=== PATIENT | male | born 1975 | race American Indian/Alaskan Native ===

== ENCOUNTER 2017-12-09 18:45 | Emergency (ER) | payer SELFPAY ==
[2017-12-09 18:55] VITALS: BP 221/152
[2017-12-09 19:40] LABS: Basophils # (Auto) 0.1 K/mm3 (0.0-0.1); Basophils % (Auto) 0.8 % (0.0-1.8); Eosinophils # (Auto) 0.1 K/mm3 (0.0-0.4); Eosinophils % (Auto) 1.1 % (0.0-4.3); Lymphocytes # (Auto) 2.1 K/mm3 (1.2-5.4); Mean Corpuscular HGB Conc 33 % (32-34); Mean Corpuscular Volume 76 fl (84-94); Monocytes # (Auto) 0.7 K/mm3 (0.0-0.8); Monocytes % (Auto) 6.6 % (0.0-7.3); Platelet Count 218 K/mm3 (140-440); Red Blood Count 6.42 M/mm3 (3.65-5.03); Red Cell Distribution Width 15.3 % (13.2-15.2)
[2017-12-09 19:47] LABS: BUN/Creatinine Ratio 16; Blood Urea Nitrogen 19 mg/dL (9-20); Calcium 8.9 mg/dL (8.4-10.2); Hemolysis Index 134; Mean Corpuscular Hemoglobin 25 pg (28-32)
--- NOTE | 2017-12-09 19:51 | XRay Report ---
FINAL REPORT EXAM: XR CHEST ROUTINE 2V HISTORY: Shortness of breath TECHNIQUE: Two views the chest Comparison: None FINDINGS: Mild cardiomegaly. Bilateral somewhat peripheral upper lobe predominant infiltrates. Basilar fibrosis. No definite effusion. Slightly prominent right hilum appears to be vascular. There is partial eventration of the right hemidiaphragm. IMPRESSION: Bilateral upper lobe slightly peripheral infiltrates. Cardiomegaly. Infection versus atypical edematous congestive changes.
== END 2017-12-10 | disposition left against medical advice (07) ==
LOC: ED 18:45
DX: Z53.21 Procedure and treatment not carried out due to patient leaving prior to being seen by health care provider (principal)
CPT/HCPCS: 36415; 71046; 80048; 85025; 93005; 93010